=== PATIENT | male | born 1965 | race African-American/Black ===

== ENCOUNTER 2017-02-23 08:17 | Emergency (ER) | payer MEDICAID ==
[2017-02-23 08:33] VITALS: BP 140/85; PULSE 69; RESP 18; TEMP 98.2; O2SAT 95
--- NOTE | 2017-02-23 08:58 | UCPHY ---
H & P Patient Type: Established Chief Complaint Nursing Narrative: blood in urine Time Seen by Provider: 02/23/17 08:24 HPI/ROS: CHIEF COMPLAINT: Hematuria History by patient HISTORY OF PRESENT ILLNESS: 52-year-old man with a history of hypertension, orthopedic problems presents complaining of hematuria. Patient states he was riding on a bus 2 days ago when he suddenly felt the need to urinate. When he was able to get up and go to the bathroom he noticed blood in his urine and then blood dripping from his penis afterwards. He said there was a small scratch which is now gone. He subsequently had some ongoing dysuria, but the hematuria resolved however he continues to feel that something is not right when he urinates. He denies any associated back pain, nausea, vomiting or fever but does complain of generally feeling unwell. He has never had this before. He does not have a sensation of incomplete voiding or history of nocturia or difficulty urinating. He has no prior history of kidney stones and there is no family history of kidney stones. He denies any trauma and has not been doing any recent vigorous exercise. He says his blood pressures been under good control. REVIEW OF SYSTEMS: As in HPI, and all other systems reviewed and are negative Source: Patient - Personal History Current Tetanus/Diphtheria Vaccine: Yes Current Tetanus Diphtheria and Acellular Pertussis (TDAP): Yes Tetanus Vaccine Date: 2009 - Medical/Surgical History Hx Asthma: No Hx Chronic Respiratory Disease: No Hx Diabetes: No Hx Cardiac Disease: No Hx Renal Disease: No Hx Cirrhosis: No Hx Alcoholism: No Hx HIV/AIDS: No Hx Splenectomy or Spleen Trauma: No Other PMH: 3 BACK SURGERIES, LT KNEE SCOPED, NOSE FIXED, EAR FIXED, HYPERTENSION - Family History Significant Family History: No pertinent family hx - Social History Smoking Status: Former smoker - Physical Exam Exam: General Appearance: Alert, non ill-appearing. Eyes: Pupils equal and round no pallor or injection. ENT, Mouth: Mucous membranes moist. Respiratory: Normal, effort, There are no retractions, lungs are clear to auscultation. Cardiovascular: Regular rate and rhythm. Gastrointestinal: Abdomen is soft and nontender, no masses, bowel sounds normal. Back: No CVA tenderness Neurological: Awake, alert and oriented x 3, no pronator drift, normal gait, no pronator drift Skin: Warm and dry, no rashes. Musculoskeletal: Neck is supple nontender. Right knee in brace Extremities are symmetrical, full range of motion. Psychiatric: Patient has normal affect, there is no agitation. Constitutional: Initial Vital Signs Temperature (C) 36.8 C 02/23/17 08:31 Heart Rate 69 02/23/17 08:31 Respiratory Rate 18 02/23/17 08:31 Blood Pressure 140/85 H 02/23/17 08:31 O2 Sat (%) 95 02/23/17 08:31 O2 Delivery Mode Room Air Allergies/Adverse Reactions: No Known Allergies Allergy (Verified 05/02/16 10:18) Home Medications: Medication Instructions Recorded Losartan Potassium [Cozaar 25 mg 06/15/14 (RX)] oxyCODONE/APAP 5/325 [Percocet 1 - 2 tab PO Q6-8PRN PRN #20 tab 06/15/14 5/325 (RX)] Medical Decision Making - Data Points Laboratory Results: 02/23/17 08:45 Urine Color YELLOW Urine Appearance CLEAR Urine pH 6.0 (5.0-7.5) Ur Specific [place] 1.020 (1.002-1.030) Urine Protein NEGATIVE (NEGATIVE) Urine Ketones NEGATIVE (NEGATIVE) Urine Blood NEGATIVE (NEGATIVE) Urine Nitrate NEGATIVE (NEGATIVE) Urine Bilirubin NEGATIVE (NEGATIVE) Urine Urobilinogen 0.2 EU EU (0.2-1.0) Ur Leukocyte Esterase NEGATIVE (NEGATIVE) Urine Glucose NEGATIVE (NEGATIVE) Departure - Departure Disposition: [facility] IP Clinical Impression: Hematuria Condition: Good Instructions: Hematuria (ED) Additional Instructions: You were seen by Dr. Emilee Richmond today. Return for any worsening or new concerns. Please keep your appointment with your primary care physician later this week and discuss this episode of hematuria to see if they would like to do further testing on your kidney or bladder to evaluate for any other underlying diseases. Referrals: Osito Monson MD [Primary Care Provider] - As per Instructions - PQRS PQRS Measurement: N/A
[2017-02-23 09:02] LABS: COLOR YELLOW; LEUKOCYTE ESTERASE,URINE NEGATIVE (NEGATIVE); NITRITE,URINE NEGATIVE (NEGATIVE)
== END 2017-02-23 09:50 | disposition home or self-care (01) ==
LOC: CED 08:17
DX: R31.9 Hematuria, unspecified (principal); R30.0 Dysuria; I10 Essential (primary) hypertension; Z87.891 Personal history of nicotine dependence
CPT/HCPCS: 81003-PO; 99215-PO; G0463-PO

== ENCOUNTER 2017-07-19 14:55 | Emergency (ER) | payer OTHER, MEDICAID ==
[2017-07-19 15:19] VITALS: RESP 16; TEMP 98.1
--- NOTE | 2017-07-19 15:24 | EDPHY ---
H & P Time Seen by Provider: 07/19/17 15:03 HPI/ROS: 52-year-old male presents complaining of while moving a rack of classes 1 of the glasses fell at involved in his hand and then broke causing a laceration to his right thenar eminence. No numbness or tingling no difficulty moving fingers. Review of systems As per HPI General no fever no chills no weakness HEENT no eye pain no eye discharge. No eye redness, no sore throat Respiratory no cough, no shortness of breath Cardiac no chest pain, no peripheral edema GI no abdominal pain, no diarrhea, no constipation, no nausea, no vomiting no flank pain, no hematuria, no dysuria Musculoskeletal no myalgias, no joint pain Heme no easy bruising, no easy bleeding Endo no polyuria, no polydipsia Skin no rashes, no pruritus Neuro no syncope, no dizziness, no headaches Psych is no suicidal ideation, no homicidal ideation Past Medical/Surgical History: Hypertension Social History: No alcohol or drug use Smoking Status: Former smoker Physical Exam: 52-year-old male Alert and oriented in no acute distress nontoxic appearance, afebrile Atraumatic normocephalic Neck no JVD Lungs clear to auscultation, no respiratory distress Heart regular rate and rhythm Extremities no cyanosis clubbing edema Except Right hand-full range of motion at wrist and digits 2 cm laceration over right thenar eminence, no visible foreign body Good capillary refill, sensation intact Constitutional: Initial Vital Signs Temperature (C) 36.7 C 07/19/17 15:17 Heart Rate 76 07/19/17 15:17 Respiratory Rate 16 07/19/17 15:17 Blood Pressure 142/83 H 07/19/17 15:17 O2 Sat (%) 95 07/19/17 15:17 O2 Delivery Mode Room Air Allergies/Adverse Reactions: acetaminophen [From Vicodin] Allergy (Verified 07/19/17 15:17) hydrocodone [From Vicodin] Allergy (Verified 07/19/17 15:17) Home Medications: Medication Instructions Recorded Cozaar 07/19/17 Meloxicam 07/19/17 Percocet 10-325 mg Tablet 07/19/17 Medical Decision Making - Diagnostics Imaging Results: Imaging Impressions Hand X-Ray 07/19/17 15:25 Impression: Negative for fracture or radiopaque foreign object. Degenerative changes within the thumb. Procedures: Procedure note-laceration The wound was irrigated with copious amounts of saline. Lidocaine 1% was used for local anesthetic. 7 x simple interrupted sutures were placed. 4-0 Ethilon was used. Patient tolerated procedure well. ED Course/Re-evaluation: Patient seen and evaluated for laceration to right hand with broken glass. X-ray negative for foreign body Laceration repaired with sutures, see procedure note Impression Right thenar eminence superficial laceration requiring suture repair Plan Return in 10 days for suture removal - Data Points Medications Given: Discontinued Medications Diphtheria/Tetanus/Acell Pertussis (Boostrix) 0.5 ml IM .ONCE ONE Stop: 07/19/17 15:27 Last Admin: 07/19/17 16:01 Dose: 0.5 ml Departure - Departure Disposition: Home, Routine, Self-Care Clinical Impression: Laceration of hand Condition: Good Instructions: Care For Your Stitches (ED), Laceration (ED) Additional Instructions: Return in 10-12 days for suture removal Referrals: Osito Monson MD [Primary Care Provider] - As per Instructions
[2017-07-19] MEDS ORDERED: TDAP ADULT 0.5 ML INJ (BOOSTRIX) IM ONE (15:26)
[2017-07-19 17:01] VITALS: BP 132/85
[2017-07-19 17:02] VITALS: PULSE 80; O2SAT 96
== END 2017-07-19 17:00 | disposition home or self-care (01) ==
LOC: CED 14:55
PROC: 0HQFXZZ Repair Right Hand Skin, External Approach (ICD-10-PCS; principal; 2017-07-19)
DX: S61.411A Laceration without foreign body of right hand, initial encounter (principal); W25.XXXA Contact with sharp glass, initial encounter; Y92.89 Other specified places as the place of occurrence of the external cause; Y99.0 Civilian activity done for income or pay; Y93.89 Activity, other specified; I10 Essential (primary) hypertension; Z23 Encounter for immunization; Z87.891 Personal history of nicotine dependence
CPT/HCPCS: 73120-PO

== ENCOUNTER 2018-02-20 10:02 | Emergency (ER) | payer MEDICAID, OTHER ==
--- NOTE | 2018-02-20 10:20 | CPEKG ---
Heart Rate: 76 RR Interval: 789 P-R Interval: 148 QRSD Interval: 92 QT Interval: 384 QTC Interval: 432 P [place]: -33 QRS [place]: -48 T Wave [place]: 7 EKG Severity - ABNORMAL ECG - EKG Impression: SINUS RHYTHM EKG Impression: LEFT ANTERIOR FASCICULAR BLOCK Electronically Signed By: Kg Calderon 20-Feb-2018 13:12:08
[2018-02-20] MEDS ORDERED: ASPIRIN 81 MG CHEWABLE TAB PO ONE (10:25)
[2018-02-20] MEDS ORDERED: NS 1,000 ML IV ONE (10:25)
[2018-02-20] MEDS ORDERED: KETOROLAC 30 MG/1 ML SDV IVP ONE (10:26)
--- NOTE | 2018-02-20 10:32 | EDPHY ---
H & P Time Seen by Provider: 02/20/18 10:11 HPI/ROS: This patient reports right-sided chest pain for the past 3 days. The pain was intermittent for the 1st day but has been constant for the past 2 days. He describes the peak intensity as 9/10. Currently it is 7/10. The pain is described as dull at baseline but becomes sharp with deep breath or with movements of his right arm. He reports associated pleuritic symptoms of worsening symptoms with sneeze or cough. He describes a dry cough 2 days duration. He has dyspnea on exertion as well. The patient arrived by family member by private vehicle here for evaluation. The patient took meloxicam for his right knee pain-15 mg this morning but has not notice much change in his chest pain with that medication. ROS: Constitutional: Positive fatigue. Subjective low-grade fevers. HEENT: No nasal congestion or other URI symptoms. Pulmonary: No hemoptysis. No respiratory distress. Cardiovascular: No heart palpitations or leg swelling. GI: No nausea vomiting. No abdominal pain. No abdominal distension. : No urinary symptoms Integumentary: No rash. Endocrine: He had diaphoresis 2 nights ago but not since. Complete review of symptoms is otherwise negative. Source: Patient Exam Limitations: No limitations - Personal History Tetanus Vaccine Date: 2009 - Medical/Surgical History Hx Asthma: No Hx Chronic Respiratory Disease: No Hx Diabetes: No Hx Cardiac Disease: No Hx Renal Disease: No Hx Cirrhosis: No Hx Alcoholism: No Hx HIV/AIDS: No Hx Splenectomy or Spleen Trauma: No Other PMH: 3 BACK SURGERIES, LT KNEE SCOPED, NOSE FIXED, EAR FIXED, HYPERTENSION - Family History Significant Family History: No pertinent family hx - Social History Smoking Status: Former smoker Alcohol Use: Rarely Drug Use: Marijuana - Physical Exam Exam: General Appearance: Pleasant black male Alert, no distress. Eyes: Pupils equal and round no pallor or injection. ENT, Mouth: Mucous membranes moist. Respiratory: Mild bilateral expiratory wheezing. No rales or rhonchi appreciated. Cardiovascular: Regular rate and rhythm. No murmur gallop rub. Patient has right-sided chest wall tenderness the partially reproduces his symptoms. Maintains 2+ symmetric radialis pulses bilaterally. Gastrointestinal: Abdomen is soft and nontender, no masses, bowel sounds normal. Neurological: GCS 15. Skin: Warm and dry, no rashes. Musculoskeletal: Neck is supple nontender. Extremities are symmetrical, full range of motion. Psychiatric: Mood and affect normal DIFFERENTIAL DIAGNOSIS: After history and physical exam differential diagnosis was considered for pulmonary embolism, musculoskeletal chest pain, myocardial ischemic disease, pneumonia, pleurisy Constitutional: Initial Vital Signs Temperature (C) 36.7 C 02/20/18 10:05 Heart Rate 79 02/20/18 10:05 Respiratory Rate 16 02/20/18 10:05 Blood Pressure 136/86 H 02/20/18 10:05 O2 Sat (%) 98 02/20/18 10:05 O2 Delivery Mode Room Air Allergies/Adverse Reactions: hydrocodone [From Vicodin] Allergy (Verified 02/20/18 10:36) Home Medications: Medication Instructions Recorded Cozaar 07/19/17 Meloxicam 07/19/17 Percocet 10-325 mg Tablet 07/19/17 Methocarbamol [Robaxin 750 mg (*)] 750 - 1,500 mg PO QID PRN #30 tab 02/20/18 Multivitamins 02/20/18 Medical Decision Making - Diagnostics EKG Interpretation: 12 lead EKG performed shortly after arrival at 10:15 a.m. Indication chest pain This rhythm at 76 Intervals: P R of 148, QRS of 92, QTC of 432 [place]: P of -33, QRS of -40, T of 7 Overall assessment sinus rhythm with left anterior fascicular block. No prior EKGs for comparison. No evidence of acute ischemia by my interpretation. Imaging Results: Imaging Impressions Chest X-Ray 02/20/18 10:26 Impression: Clear lungs. No pneumonia. Two view chest x-ray: Normal by my interpretation CT angio chest per Dr. [id number] pulmonary embolism. Patient has 2 small right pulmonary nodules 1 is 2 cm daily wrist smaller near the minor fissure. She suspects 0 benign. With history of prior smoking-recommendation for interval repeat CT chest in 6 months to a year. Imaging: Discussed imaging studies w/ call center dispatcher Radiologist (CT angio chest), I viewed and interpreted images myself (Chest x-ray) ED Course/Re-evaluation: IV, monitor, aspirin 324 p.o. A review of labs reveals CBC with normal white count, crit of 39, normal platelets, normal troponin and electrolytes. However D-dimer is mildly elevated Of above 0.6. I counseled patient regarding normal chest x-ray but elevated D-dimer the prompted the CT angio chest. I explained benign-appearing pulmonary nodules in the right side no warranted in interval chest CT without contrast in 6 months to year. We ruled out pulmonary embolism After workup, patient recalled that he did started new dumbbell work out the thinks he may have sore muscles on the right side as well as some chronic upper back pain contributing to his pain. Discussion: Given worsening pain with movement of the right arm and some chest wall tenderness I suspect this patient has musculoskeletal chest pain. However given age and associated sense of dyspnea, patient warranted further workup. I do not think he is having a coronary syndrome given normal troponin despite 3 days of symptoms, benign EKG. We ruled out pulmonary embolism. Pursued CT angio due to the mildly elevated D-dimer. No other concerning findings. Patient understands that today's workup is provisionally warrants further workup as an outpatient to include follow up with cardiology-provided Dr. Cramer phone number to consider treadmill or other outpatient tests. Will treat him with methocarbamol muscle relaxant in addition to his current NSAID and Tylenol for the pain. He understands need to return emergency department should he have any worsening of symptoms despite the treatment plan. - Data Points Laboratory Results: Laboratory Results 02/20/18 10:30 02/20/18 10:30 02/20/18 02/20/18 02/20/18 10:30 10:30 10:30 WBC 9.46 10^3/uL 10^3/uL (3.80-9.50) RBC 5.21 10^6/uL 10^6/uL (4.40-6.38) Hgb 13.0 g/dL L g/dL (13.7-17.5) Hct 39.3 % L % (40.0-51.0) MCV 75.4 fL L fL (81.5-99.8) MCH 25.0 pg L pg (27.9-34.1) MCHC 33.1 g/dL g/dL (32.4-36.7) RDW 16.7 % H % (11.5-15.2) Plt Count 260 10^3/uL 10^3/uL (150-400) MPV 9.7 fL fL (8.7-11.7) Neut % (Auto) 65.3 % % (39.3-74.2) Lymph % (Auto) 20.8 % % (15.0-45.0) [place] % (Auto) 11.1 % % (4.5-13.0) Eos % (Auto) 2.0 % % (0.6-7.6) Baso % (Auto) 0.6 % % (0.3-1.7) Nucleat RBC Rel Count 0.0 % % (0.0-0.2) Absolute Neuts (auto) 6.17 10^3/uL 10^3/uL (1.70-6.50) Absolute Lymphs (auto) 1.97 10^3/uL 10^3/uL (1.00-3.00) Absolute Monos (auto) 1.05 10^3/uL H 10^3/uL (0.30-0.80) Absolute Eos (auto) 0.19 10^3/uL 10^3/uL (0.03-0.40) Absolute Basos (auto) 0.06 10^3/uL 10^3/uL (0.02-0.10) Absolute Nucleated RBC 0.00 10^3/uL 10^3/uL (0-0.01) Immature Gran % 0.2 % % (0.0-1.1) Immature Gran # 0.02 10^3/uL 10^3/uL (0.00-0.10) PT 12.9 SEC SEC (12.0-15.0) INR 0.98 (0.83-1.16) APTT 33.1 SEC SEC (23.0-38.0) D-Dimer 0.68 ug/mLFEU H ug/mLFEU (0.00-0.50) Sodium 144 mEq/L mEq/L (135-145) Potassium 4.0 mEq/L mEq/L (3.5-5.2) Chloride 110 mEq/L mEq/L (97-110) Carbon Dioxide 22 mEq/l mEq/l (22-31) Anion Gap 12 mEq/L mEq/L (8-16) BUN 12 mg/dL mg/dL (7-23) Creatinine 0.8 mg/dL mg/dL (0.7-1.3) Estimated GFR > 60 Glucose 130 mg/dL H mg/dL (70-100) Calcium 9.8 mg/dL mg/dL (8.5-10.4) Troponin I < 0.012 ng/mL ng/mL (0.000-0.034) Medications Given: Discontinued Medications Aspirin (Aspirin) 324 mg PO EDNOW ONE Stop: 02/20/18 10:26 Last Admin: 02/20/18 10:32 Dose: 324 mg Sodium Chloride (Ns) 1,000 mls @ 0 mls/hr IV EDNOW ONE; Wide Open PRN Reason: Protocol Stop: 02/20/18 10:26 Last Admin: 02/20/18 10:48 Dose: 1,000 mls Ketorolac Tromethamine (Toradol) 30 mg IVP EDNOW ONE Stop: 02/20/18 10:27 Last Admin: 02/20/18 10:49 Dose: Not Given Departure - Departure Disposition: Home, Routine, Self-Care Clinical Impression: Chest pain Qualifiers: Chest pain type: chest pain on breathing Qualified Code(s): R07.1 - Chest pain on breathing Condition: Good Instructions: Methocarbamol (By mouth), Chest Pain (ED) Additional Instructions: Diagnosis- chest pain 2. Right Pulmonary nodule You're chest pain is likely musculoskeletal in etiology. Today we ruled out blood clot in the lung. No pneumonia. No evidence of heart attack. However today's workup is provisional. Plan: Take Tylenol and meloxicam (NSAID) for pain. Methocarbamol muscle relaxer in addition if needed. Continue your Cozaar for blood pressure control Try gentle stretches of the right arm and chest musculature each day. Follow up with primary care physician for any ongoing symptoms Call Cardiology-number listed below to arrange follow-up for outpatient further evaluation Ask your primary care physician to order a CT chest without contrast in 6 months to year from now-sometime between August of 2018 and February of 2019 to rule out any interval change in her pulmonary nodules. Return emergency department for any significant worsening despite treatment plan Please cc a copy of this chart to patient's primary care physician Dr. Osito Monson-fax #[phone] Referrals: Winter Eastman MD [Medical Doctor] - As per Instructions Osito Monson MD [Primary Care Provider] - As per Instructions Prescriptions: Methocarbamol [Robaxin 750 mg (*)] 750 - 1,500 mg PO QID PRN #30 tab PRN Reason: Muscle Spasms
[2018-02-20 10:35] LABS: PLATELET COUNT 260 10^3/uL (150-400)
[2018-02-20 10:43] VITALS: BP 136/86
[2018-02-20 11:02] LABS: INR 0.98 (0.83-1.16); PROTIME(PATIENT) 12.9 SEC (12.0-15.0)
[2018-02-20] MEDS ORDERED: IOPAMIDOL (ISOVUE 370) 100 ML BTL IV ONE (11:15)
== END 2018-02-20 12:12 | disposition home or self-care (01) ==
LOC: CED 10:02
DX: R07.1 Chest pain on breathing (principal); E86.9 Volume depletion, unspecified; I10 Essential (primary) hypertension; Z87.891 Personal history of nicotine dependence
CPT/HCPCS: 71046-PO; 71275-PO; 80048-PO; 84484-PO; 85025-PO; 85378-PO; 85610-PO; 85730-PO; Q9967

== ENCOUNTER 2018-08-02 17:54 | Emergency (ER) | payer OTHER, MEDICAID ==
[2018-08-02 18:04] VITALS: BP 137/86
--- NOTE | 2018-08-02 18:11 | EDPHY ---
H & P Stated Complaint: 2 weeks of right ear pain .. Time Seen by Provider: 08/02/18 17:56 HPI/ROS: Chief Complaint: Right ear pain HPI: 53-year-old male presenting with 2 weeks of worsening right ear pain. He also has sinus congestion, cold type symptoms. He has been taking over-the- counter cold medicine without relief. He also has pain in his right forehead and pressure below his right eye. No hearing changes. No sore throat. No difficulty swallowing. No fevers or chills. Mild headache. This worsens when he leans forward. No nausea or vomiting. No chest pain or shortness of breath. ROS: 10 systems were reviewed and were negative except those elements noted in the HPI. PMH: Hypertension Social History: No smoking Family History: non-contributory Physical Exam: Gen: Awake, Alert, No Distress HEENT: He has sinus tenderness to percussion over his right maxillary and right frontal sinus Ears: Bilateral TMs are normal, no discharge Nose: no rhinorrhea Eyes: PERRLA, EOMI Mouth: Moist mucosa no temporomandibular joint tenderness or chest mass. No mastoid tenderness. Neck: Supple, no JVD, no lymphadenopathy Chest: nontender, lungs clear to auscultation Heart: S1, S2 normal, no murmur Abd: Soft, non-tender, no guarding Back: no CVA tenderness, no midline tenderness Ext: no edema, non-tender Skin: no rash Neuro: CN II-XII intact, Sensation grossly intact, Strength 5/5 in bilateral upper and lower extremities - Personal History Current Tetanus Diphtheria and Acellular Pertussis (TDAP): Yes Tetanus Vaccine Date: 2009 - Medical/Surgical History Hx Asthma: No Hx Chronic Respiratory Disease: No Hx Diabetes: No Hx Cardiac Disease: No Hx Renal Disease: No Hx Cirrhosis: No Hx Alcoholism: No Hx HIV/AIDS: No Hx Splenectomy or Spleen Trauma: No Other PMH: 3 BACK SURGERIES, LT KNEE SCOPED, Nasal surgery, HYPERTENSION, chronic knee and back pain - Social History Smoking Status: Former smoker Constitutional: Initial Vital Signs Temperature (C) 36.7 C 08/02/18 17:58 Heart Rate 91 08/02/18 17:58 Respiratory Rate 16 08/02/18 17:58 Blood Pressure 137/86 H 08/02/18 17:58 O2 Sat (%) 98 08/02/18 17:58 O2 Delivery Mode Room Air Allergies/Adverse Reactions: hydrocodone [From Vicodin] Allergy (Verified 08/02/18 18:02) Home Medications: Medication Instructions Recorded Cozaar 07/19/17 Meloxicam 07/19/17 Amoxicillin Trihydrate [Amoxil] 500 mg PO Q8H #30 cap 08/02/18 Medical Decision Making ED Course/Re-evaluation: Patient has symptoms consistent with sinusitis. Will treat with amoxicillin, will refer for follow-up with a primary care physician as an outpatient. Departure - Departure Disposition: Home, Routine, Self-Care Clinical Impression: Sinusitis Condition: Good Instructions: Sinusitis (ED) Additional Instructions: Take your full course of antibiotics. Follow up with primary care physician in 4-5 days for recheck. Referrals: Osito Monson MD [Primary Care Provider] - As per Instructions Prescriptions: Amoxicillin Trihydrate [Amoxil] 500 mg PO Q8H #30 cap
[2018-08-02] MEDS ORDERED: AMOXICILLIN 250 MG PREPACK#4 BTL TAKEHOME ONE (18:12)
== END 2018-08-02 18:25 | disposition home or self-care (01) ==
LOC: CED 17:54
DX: J32.9 Chronic sinusitis, unspecified (principal)